=== PATIENT | female | born 1985 | race American Indian/Alaskan Native ===

== ENCOUNTER 2016-12-23 10:22 | Emergency (ER) | payer BC ==
[2016-12-23 11:09] LABS: Basophils % (Auto) 0.2 % (0.0-1.8); Eosinophils % (Auto) 0.3 % (0.0-4.3); Hematocrit 40.6 % (30.3-42.9); Hemoglobin 13.4 gm/dl (10.1-14.3); Mean Corpuscular HGB Conc 33 % (30-34); Mean Corpuscular Hemoglobin 27 pg (28-32); Mean Corpuscular Volume 83 fl (79-97); Platelet Count 269 K/mm3 (140-440); Red Blood Count 4.91 M/mm3 (3.65-5.03); White Blood Count 7.6 K/mm3 (4.5-11.0)
[2016-12-23 11:25] LABS: Alanine Aminotransferase 18 units/L (7-56); Albumin 4.2 g/dL (3.9-5); Albumin/Globulin Ratio 1.3 %; Alkaline Phosphatase 84 units/L (35-129); Anion Gap 18 mmol/L; BUN/Creatinine Ratio 11.66; Blood Urea Nitrogen 7 mg/dL (7-17); Calcium 8.7 mg/dL (8.4-10.2); Carbon Dioxide 23 mmol/L (22-30); Chloride 99.2 mmol/L (98-107); Glucose 151 mg/dL (65-100); Lipase 17 units/L (13-60); Potassium 3.7 mmol/L (3.6-5.0); Sodium 136 mmol/L (137-145); Total Protein 7.4 g/dL (6.3-8.2)
[2016-12-23 12:11] LABS: Bacteria,Urine 2+ /HPF (Negative); Bilirubin,Urine NEG (Negative); Blood,Urine MOD (Negative); Ketones,Urine TR mg/dL (Negative); Leukocyte Esterase,Urine LG (Negative); Mucus,Urine 2+ /HPF; Nitrite,Urine NEG (Negative); Urobilinogen,Urine < 2.0 mg/dL (<2.0)
[2016-12-23] MEDS ORDERED: ZOFRAN ONE ×2 (14:36→17:26)
[2016-12-23] MEDS ORDERED: ZOFRAN IV ONE ×2 (14:42→17:25)
[2016-12-23] MEDS ORDERED: NACL 0.9% 1000 ML 1,000 ML IV ONE (17:44)
[2016-12-23] MEDS ORDERED: TORADOL IV ONE (17:45)
[2016-12-23] MEDS ORDERED: MORPHINE IV ONE (18:23)
[2016-12-23] MEDS ORDERED: REGLAN IV ONE (18:24)
[2016-12-23] MEDS ORDERED: ROCEPHIN/NS 1 GM/50 ML 1 GM/50 ML BAG IV ONE (18:25)
--- NOTE | 2016-12-23 18:33 | Emergency Department Report ---
HPI - General Chief Complaint: Abdominal Pain Time Seen by Provider: 12/23/16 18:10 - HPI HPI: Room 38 The patient is a 31-year-old female presenting with a chief complaint of abdominal pain. The patient states this morning she developed diffuse abdominal pain that was aching and cramping in nature. The patient states the pain is constant. The patient states she developed nausea vomiting and diarrhea yesterday. Patient states she's had over 10 episodes of diarrhea has began to notice blood in her stool. Patient denies dysuria or hematuria. Patient denies back pain or fever. The patient currently gives her abdominal pain a score of 10/10 Location: Abdomen Duration: [see above] Quality: Aching and cramping Severity: 10/10 Modifying factors: [see above] Context: [see above] Mode of transportation: [not driving] ED Past Medical Hx - Past Medical History Previous Medical History?: No - Surgical History Hx Cholecystectomy: Yes - Family History Family history: no significant - Social History Smoking Status: Never Smoker Substance Use Type: None - Medications Home Medications: Home Medications Medication Instructions Recorded Confirmed Last Taken Type Ibuprofen [Motrin] 600 mg PO Q8H PRN 11/14/15 11/14/15 11/14/15 History Promethazine [Phenergan] 25 mg IN Q6HR PRN 11/14/15 11/14/15 11/14/15 History HYDROcodone/APAP 5-325 [[place] 1 - 2 each PO Q6HR PRN #14 tablet 11/15/15 Unknown Rx 5/325] Levofloxacin [Levaquin TAB] 500 mg PO QDAY #10 tablet 11/15/15 Unknown Rx Metoclopramide [Reglan] 10 mg PO TID PRN #20 tab 11/15/15 Unknown Rx Diphenoxylate/Atropine [Lomotil] 2 tab PO QID PRN #20 tablet 12/23/16 Unknown Rx Promethazine [Phenergan TAB] 25 mg PO Q6HR PRN #20 tab 12/23/16 Unknown Rx Promethazine [Phenergan] 25 mg IN Q6HR PRN #5 supp.rect 12/23/16 Unknown Rx Sulfamethoxazole/Trimethoprim 1 each PO BID #20 tablet 12/23/16 Unknown Rx [Bactrim DS TAB] traMADol [Ultram] 50 mg PO Q6HR PRN #14 tablet 12/23/16 Unknown Rx ED Review of Systems ROS: Stated complaint: ABD PAIN/VOMITING/DIARRHEA Other details as noted in HPI Comment: All other systems reviewed and negative Constitutional: denies: chills, fever Eyes: denies: eye pain, eye discharge, vision change ENT: denies: ear pain, throat pain Respiratory: denies: cough, shortness of breath, wheezing Cardiovascular: denies: chest pain, palpitations Endocrine: no symptoms reported Gastrointestinal: abdominal pain, nausea, vomiting, diarrhea Genitourinary: denies: urgency, dysuria, discharge Musculoskeletal: denies: back pain, joint swelling, arthralgia Skin: denies: rash, lesions Neurological: denies: headache, weakness, paresthesias Psychiatric: denies: anxiety, depression Hematological/Lymphatic: denies: easy bleeding, easy bruising Physical Exam - Physical Exam Vital Signs: Vital Signs 12/23/16 10:36 Temperature 97.9 F Pulse Rate 83 Blood Pressure 148/95 O2 Sat by Pulse 100 Oximetry Physical Exam: GENERAL: The patient is well-developed well-nourished female lying on stretcher sleeping not appearing to be in acute distress. Patient slow to respond when questioned. [] HEENT: Normocephalic. Atraumatic. Extraocular motions are intact. NECK: Trachea midline CHEST/LUNGS: Clear to auscultation. There is no respiratory distress noted. HEART/CARDIOVASCULAR: Regular. There is no tachycardia. There is no gallop rub or murmur. ABDOMEN: Abdomen is soft, nontender. Patient has normal bowel sounds. There is no abdominal distention. SKIN: There is no rash. There is no edema. There is no diaphoresis. NEURO: The patient is awake and oriented. The patient is cooperative. The patient has normal speech MUSCULOSKELETAL: There is no evidence of acute injury. ED Course Vital Signs 12/23/16 10:36 Temperature 97.9 F Pulse Rate 83 Blood Pressure 148/95 O2 Sat by Pulse 100 Oximetry ED Medical Decision Making - Lab Data Result diagrams: 12/23/16 10:56 12/23/16 10:56 Laboratory Tests 12/23/16 12/23/16 12/23/16 10:56 10:56 11:43 WBC 7.6 RBC 4.91 Hgb 13.4 Hct 40.6 MCV 83 MCH 27 L MCHC 33 RDW 14.0 Plt Count 269 Lymph % (Auto) 15.2 Jack % (Auto) 6.1 Eos % (Auto) 0.3 Baso % (Auto) 0.2 Lymph # 1.2 Jack # 0.5 Eos # 0.0 Baso # 0.0 Seg Neutrophils % 78.2 H Seg Neutrophils # 5.9 Sodium 136 L Potassium 3.7 Chloride 99.2 Carbon Dioxide 23 Anion Gap 18 BUN 7 Creatinine 0.6 L Estimated GFR > 60 BUN/Creatinine Ratio 11.66 Glucose 151 H Calcium 8.7 Total Bilirubin 0.30 AST 15 ALT 18 Alkaline Phosphatase 84 Total Protein 7.4 Albumin 4.2 Albumin/Globulin Ratio 1.3 Lipase 17 Urine Color Yellow Urine Turbidity Turbid Urine pH 5.0 Ur Specific [place] 1.018 Urine Protein 100 mg/dl Urine Glucose (UA) Neg Urine Ketones Tr Urine Blood Mod Urine Nitrite Neg Ur Reducing Substances Not Reportable Urine Bilirubin Neg Urine Ictotest Not Reportable Urine Urobilinogen < 2.0 Ur Leukocyte Esterase Lg Urine WBC (Auto) 57.0 H Urine RBC (Auto) 16.0 U Epithel Cells (Auto) 75.0 H Urine Bacteria (Auto) 2+ Urine Mucus 2+ Urine HCG, Qual Negative - Radiology Data Radiology results: report reviewed (CT abdomen and pelvis), image reviewed (CT abdomen and pelvis) CT abdomen and pelvis (read by radiologist)-no acute abnormalities are seen - Differential Diagnosis polynephritis, UTI, gastroenteritis Critical care attestation.: If time is entered above; I have spent that time in minutes in the direct care of this critically ill patient, excluding procedure time. ED Disposition Clinical Impression: UTI (urinary tract infection), Nausea vomiting and diarrhea, Acute abdominal pain Disposition: DISCHARGED TO HOME OR SELFCARE Is pt being admited?: No Does the pt Need Aspirin: No Condition: Stable Instructions: Abdominal Pain (ED), Acute Nausea and Vomiting (ED) Additional Instructions: Return to the emergency department immediately should you develop worsening symptoms, fever, inability to tolerate food or liquid or any other concerns. 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 Please follow with him for further evaluation) Time of Disposition: 20:26
--- NOTE | 2016-12-23 20:14 | Cat Scan Report ---
FINAL REPORT EXAM: CT ABDOMEN PELVIS W CON HISTORY: diffuse abdominal pain n/v/d TECHNIQUE: CT abdomen and pelvis with intravenous contrast PRIORS: None. FINDINGS: No acute abnormality identified in the lung bases. No focal abnormality identified within the liver parenchyma. Patient status post cholecystectomy. The spleen demonstrates normal size and attenuation. No pancreatic abnormalities seen. The kidneys demonstrate symmetric contrast enhancement. No evidence of hydronephrosis. The adrenal glands are unremarkable Abdominal aorta is normal in caliber. No pathologically enlarged lymph nodes are identified. No signs of free fluid or free air No evidence of small bowel dilatation. Colon is nondistended. No pericolonic inflammatory change. Urinary bladder is unremarkable. IMPRESSION: No acute abnormalities seen
[2016-12-23 20:59] VITALS: BP 159/89
== END 2016-12-23 21:06 | disposition home or self-care (01) ==
LOC: ED 10:22
DX: N39.0 Urinary tract infection, site not specified (principal); R11.2 Nausea with vomiting, unspecified; R19.7 Diarrhea, unspecified; R10.84 Generalized abdominal pain; Z90.49 Acquired absence of other specified parts of digestive tract
CPT/HCPCS: 36415; 74177; 80053; 81001; 81025; 83690; 85025; 87086; 96361; 96365; 96366; 96375; 96376; 99284; J0696; J1885; J2270; J2405; J2765; J7030; Q9967

== ENCOUNTER 2017-10-07 10:25 | Emergency (ER) | payer BC ==
[2017-10-07 11:05] LABS: Basophils # (Auto) 0.1 K/mm3 (0.0-0.1); Basophils % (Auto) 0.4 % (0.0-1.8); Hematocrit 41.3 % (30.3-42.9); Hemoglobin 13.5 gm/dl (10.1-14.3); Mean Corpuscular HGB Conc 33 % (30-34); Mean Corpuscular Hemoglobin 28 pg (28-32); Mean Corpuscular Volume 85 fl (79-97); Monocytes # (Auto) 0.6 K/mm3 (0.0-0.8); Platelet Count 390 K/mm3 (140-440); Red Blood Count 4.88 M/mm3 (3.65-5.03); Red Cell Distribution Width 13.7 % (13.2-15.2)
[2017-10-07 11:41] LABS: Amorphous Crystals,Urine 3+; Bilirubin,Urine NEG (Negative); Blood,Urine SM (Negative); Color,Urine Blue (Yellow); Mucus,Urine 3+ /HPF; Urobilinogen,Urine < 2.0 mg/dL (<2.0)
--- NOTE | 2017-10-07 12:03 | Emergency Department Report ---
ED Abdominal Pain HPI - General Chief Complaint: Abdominal Pain Stated Complaint: VOMITNG/DIARRHEA/ Time Seen by Provider: 10/07/17 12:01 Source: patient Mode of arrival: Ambulatory Limitations: No Limitations - History of Present Illness Initial Comments: Patient is aware that she is . She does not have an OB doctor. She she does not complain of abdominal pain. She states he's been vomiting. She complains of ongoing nausea. She was given Zofran prior to my encounter. She states she still somewhat nauseated. She has not received any IV fluid. She denies fever or chills or any other specific symptoms. MD Complaint: abdominal pain (according to triage she does not complain of that to me) Severity: moderate Consistency: now resolved Improves With: nothing Worsens With: nothing Associated Symptoms: denies other symptoms, nausea, vomiting - Related Data Home Medications Medication Instructions Recorded Confirmed Last Taken Ibuprofen [Motrin] 600 mg PO Q8H PRN 11/14/15 11/14/15 11/14/15 Promethazine [Phenergan] 25 mg [place] Q6HR PRN 11/14/15 11/14/15 11/14/15 Previous Rx's Medication Instructions Recorded Last Taken Type HYDROcodone/APAP 5-325 [[place] 1 - 2 each PO Q6HR PRN #14 tablet 11/15/15 Unknown Rx 5/325] Levofloxacin [Levaquin TAB] 500 mg PO QDAY #10 tablet 11/15/15 Unknown Rx Metoclopramide [Reglan] 10 mg PO TID PRN #20 tab 11/15/15 Unknown Rx Diphenoxylate/Atropine [Lomotil] 2 tab PO QID PRN #20 tablet 12/23/16 Unknown Rx Promethazine [Phenergan TAB] 25 mg PO Q6HR PRN #20 tab 12/23/16 Unknown Rx Promethazine [Phenergan] 25 mg [place] Q6HR PRN #5 supp.rect 12/23/16 Unknown Rx Sulfamethoxazole/Trimethoprim 1 each PO BID #20 tablet 12/23/16 Unknown Rx [Bactrim DS TAB] traMADol [Ultram] 50 mg PO Q6HR PRN #14 tablet 12/23/16 Unknown Rx Nitrofurantoin Monohyd/M-Cryst 100 mg PO BID #7 capsule 10/07/17 Unknown Rx [Macrobid 100 mg Capsule] Ondansetron [Zofran Odt] 4 mg PO Q6H #7 tab.rapdis 10/07/17 Unknown Rx Allergies Allergy/AdvReac Type Severity Reaction Status Date / Time No Known Allergies Allergy Unverified 11/14/15 18:28 ED Review of Systems ROS: Stated complaint: VOMITNG/DIARRHEA/ Other details as noted in HPI Constitutional: denies: chills, fever Eyes: denies: eye pain, eye discharge, vision change ENT: denies: ear pain, throat pain Respiratory: denies: cough, shortness of breath, wheezing Cardiovascular: denies: chest pain, palpitations Endocrine: no symptoms reported Gastrointestinal: as per HPI, abdominal pain, nausea, vomiting. denies: diarrhea Genitourinary: denies: urgency, dysuria, discharge Musculoskeletal: denies: back pain, joint swelling, arthralgia Skin: denies: rash, lesions Neurological: denies: headache, weakness, paresthesias Psychiatric: denies: anxiety, depression Hematological/Lymphatic: denies: easy bleeding, easy bruising ED Past Medical Hx - Surgical History Hx Cholecystectomy: Yes Additional Surgical History: - Social History Smoking Status: Never Smoker Substance Use Type: None - Medications Home Medications: Home Medications Medication Instructions Recorded Confirmed Last Taken Type Ibuprofen [Motrin] 600 mg PO Q8H PRN 11/14/15 11/14/15 11/14/15 History Promethazine [Phenergan] 25 mg [place] Q6HR PRN 11/14/15 11/14/15 11/14/15 History HYDROcodone/APAP 5-325 [[place] 1 - 2 each PO Q6HR PRN #14 tablet 11/15/15 Unknown Rx 5/325] Levofloxacin [Levaquin TAB] 500 mg PO QDAY #10 tablet 11/15/15 Unknown Rx Metoclopramide [Reglan] 10 mg PO TID PRN #20 tab 11/15/15 Unknown Rx Diphenoxylate/Atropine [Lomotil] 2 tab PO QID PRN #20 tablet 12/23/16 Unknown Rx Promethazine [Phenergan TAB] 25 mg PO Q6HR PRN #20 tab 12/23/16 Unknown Rx Promethazine [Phenergan] 25 mg [place] Q6HR PRN #5 supp.rect 12/23/16 Unknown Rx Sulfamethoxazole/Trimethoprim 1 each PO BID #20 tablet 12/23/16 Unknown Rx [Bactrim DS TAB] traMADol [Ultram] 50 mg PO Q6HR PRN #14 tablet 12/23/16 Unknown Rx Nitrofurantoin Monohyd/M-Cryst 100 mg PO BID #7 capsule 10/07/17 Unknown Rx [Macrobid 100 mg Capsule] Ondansetron [Zofran Odt] 4 mg PO Q6H #7 tab.rapdis 10/07/17 Unknown Rx ED Physical Exam - General Limitations: No Limitations General appearance: alert, in no apparent distress - Head Head exam: Present: atraumatic, normocephalic - Eye Eye exam: Present: normal appearance - ENT ENT exam: Present: mucous membranes moist - Neck Neck exam: Present: normal inspection - Respiratory Respiratory exam: Present: normal lung sounds bilaterally. Absent: respiratory distress - Cardiovascular Cardiovascular Exam: Present: regular rate, normal rhythm. Absent: systolic murmur, diastolic murmur, rubs, gallop - GI/Abdominal GI/Abdominal exam: Present: soft, normal bowel sounds. Absent: distended, tenderness, guarding, rebound, rigid - Extremities Exam Extremities exam: Present: normal inspection - Back Exam Back exam: Present: normal inspection - Neurological Exam Neurological exam: Present: alert, oriented X3, CN II-XII intact. Absent: motor sensory deficit - Psychiatric Psychiatric exam: Present: normal affect, normal mood - Skin Skin exam: Present: warm, dry, intact, normal color. Absent: rash ED Course Vital Signs 10/07/17 10/07/17 10/07/17 10:41 11:57 14:36 Temperature 97.7 F Pulse Rate 64 98 H Respiratory 18 18 18 Rate Blood Pressure 130/56 Blood Pressure 144/105 [Left] O2 Sat by Pulse 100 100 100 Oximetry - Reevaluation(s) Reevaluation #1: We'll recheck the patient's blood pressure prior to discharge. She is appropriate for outpatient follow-up with OB. Urine culture will be ordered. 10/07/17 15:31 ED Medical Decision Making - Lab Data Result diagrams: 10/07/17 10:57 10/07/17 10:57 Laboratory Results - last 24 hr 10/07/17 10/07/17 10/07/17 10:57 10:57 11:18 WBC 14.6 H RBC 4.88 Hgb 13.5 Hct 41.3 MCV 85 MCH 28 MCHC 33 RDW 13.7 Plt Count 390 Lymph % (Auto) 14.0 [place] % (Auto) 4.0 Eos % (Auto) 0.0 Baso % (Auto) 0.4 Lymph # 2.0 [place] # 0.6 Eos # 0.0 Baso # 0.1 Seg Neutrophils % 81.6 H Seg Neutrophils # 11.9 H HCG, Quant 1393 H Urine Color Blue Urine Turbidity Turbid Urine pH 5.0 Ur Specific [place] 1.024 Urine Protein 100 mg/dl Urine Glucose (UA) Neg Urine Ketones Tr Urine Blood Sm Urine Nitrite Neg Urine Bilirubin Neg Urine Urobilinogen < 2.0 Ur Leukocyte Esterase Tr Urine WBC (Auto) 10.0 H Urine RBC (Auto) 3.0 U Epithel Cells (Auto) 18.0 H Amorphous Crystals 3+ Urine Mucus 3+ Laboratory Results - last 24 hr 10/07/17 10/07/17 10/07/17 10:57 10:57 10:57 WBC 14.6 H RBC 4.88 Hgb 13.5 Hct 41.3 MCV 85 MCH 28 MCHC 33 RDW 13.7 Plt Count 390 Lymph % (Auto) 14.0 [place] % (Auto) 4.0 Eos % (Auto) 0.0 Baso % (Auto) 0.4 Lymph # 2.0 [place] # 0.6 Eos # 0.0 Baso # 0.1 Seg Neutrophils % 81.6 H Seg Neutrophils # 11.9 H Sodium 135 L Potassium 3.6 Chloride 99.0 Carbon Dioxide 20 L Anion Gap 20 BUN 7 Creatinine 0.6 L Estimated GFR > 60 BUN/Creatinine Ratio 12 Glucose 189 H Calcium 8.7 Total Bilirubin 0.30 AST 21 ALT 34 Alkaline Phosphatase 100 Total Protein 7.5 Albumin 4.1 Albumin/Globulin Ratio 1.2 Lipase 14 HCG, Quant 1393 H Urine Color Urine Turbidity Urine pH Ur Specific [place] Urine Protein Urine Glucose (UA) Urine Ketones Urine Blood Urine Nitrite Urine Bilirubin Urine Urobilinogen Ur Leukocyte Esterase Urine WBC (Auto) Urine RBC (Auto) U Epithel Cells (Auto) Amorphous Crystals Urine Mucus 10/07/17 11:18 WBC RBC Hgb Hct MCV MCH MCHC RDW Plt Count Lymph % (Auto) [place] % (Auto) Eos % (Auto) Baso % (Auto) Lymph # [place] # Eos # Baso # Seg Neutrophils % Seg Neutrophils # Sodium Potassium Chloride Carbon Dioxide Anion Gap BUN Creatinine Estimated GFR BUN/Creatinine Ratio Glucose Calcium Total Bilirubin AST ALT Alkaline Phosphatase Total Protein Albumin Albumin/Globulin Ratio Lipase HCG, Quant Urine Color Blue Urine Turbidity Turbid Urine pH 5.0 Ur Specific [place] 1.024 Urine Protein 100 mg/dl Urine Glucose (UA) Neg Urine Ketones Tr Urine Blood Sm Urine Nitrite Neg Urine Bilirubin Neg Urine Urobilinogen < 2.0 Ur Leukocyte Esterase Tr Urine WBC (Auto) 10.0 H Urine RBC (Auto) 3.0 U Epithel Cells (Auto) 18.0 H Amorphous Crystals 3+ Urine Mucus 3+ Critical care attestation.: If time is entered above; I have spent that time in minutes in the direct care of this critically ill patient, excluding procedure time. ED Disposition Clinical Impression: Hyperemesis gravidarum, Hyperglycemia, UTI (urinary tract infection) Disposition: TO HOME OR SELFCARE Is pt being admited?: No Does the pt Need Aspirin: No Condition: Stable Instructions: Hyperemesis Gravidarum (ED), Hyperglycemia, Non-Diabetic (ED), Urinary Tract Infection in Women (ED) Additional Instructions: Sugar was a bit elevated this will require monitoring. Your urine showed a few white blood cells so we will place her on an antibiotic for the next 3 days. Follow-up on a urine culture test. Follow up with the OB doctor. Return to the emergency department any acute change or problem. Prescriptions: Nitrofurantoin Monohyd/M-Cryst [Macrobid 100 mg Capsule] 100 mg PO BID #7 capsule Ondansetron [Zofran Odt] 4 mg PO Q6H #7 tab.rapdis Referrals: PRIMARY MD KOJO [Primary Care Provider] - 3-5 Days CARLOS KNIGHT MD [Staff Physician] - 2-3 Days Time of Disposition: 15:31
[2017-10-07 12:24] LABS: Alanine Aminotransferase 34 units/L (7-56); Albumin 4.1 g/dL (3.9-5); BUN/Creatinine Ratio 12; Blood Urea Nitrogen 7 mg/dL (7-17); Calcium 8.7 mg/dL (8.4-10.2); Hemolysis Index 3; Lipase 14 units/L (13-60)
[2017-10-07] MEDS ORDERED: ZOFRAN ONE (12:35)
[2017-10-07] MEDS ORDERED: ZOFRAN IV ONE ×2 (12:46→14:09)
[2017-10-07] MEDS ORDERED: ZOFRAN ODT ONE (12:55)
[2017-10-07] MEDS ORDERED: ZOFRAN PO ONE ×2 (13:00→14:00)
[2017-10-07] MEDS ORDERED: NACL 0.9% 1000 ML 1,000 ML IV ONE (14:09)
--- NOTE | 2017-10-07 15:00 | Ultrasound Report ---
FINAL REPORT EXAM: US OB TRANSVAGINAL HISTORY: abdominal pain first trimester TECHNIQUE: Early obstetrical ultrasound. Transvaginal scanning. This is read in conjunction with a transabdominal scan performed concurrently. PRIORS: None. FINDINGS: The uterus measures 7.4 x 2.9 x 2.9 cm. There is a very tiny gestational sac in the uterus measuring 3.8 mm. A tiny yolk sac is questionably identified. No pole seen, probably too early. Sac size roughly corresponds to gestational age of 5 weeks. No abnormal adnexal mass seen. Right ovary measures 2.3 x 1.2 x 2.4 cm. Left measures 2.2 x 2.3 x 2.6 cm. 2.5 x 1.0 x 2.1 cm left ovarian mass could be a complex cystic mass versus solid mass. IMPRESSION: Intrauterine very small gestational sac seen. A yolk sac questionably seen but pole not identified, probably too early. Sac size roughly corresponds to age of 5 weeks. Followup suggested to confirm viability and better assess gestational age. Complex cystic mass versus small solid lesion/mass in left ovary. This could be a complicated corpus luteal cyst. This can be reassessed on subsequent exams.
--- NOTE | 2017-10-07 15:04 | Ultrasound Report ---
FINAL REPORT EXAM: US OB < = 14 WEEKS FETUS HISTORY: abdominal pain first trimester TECHNIQUE: Early obstetrical ultrasound. Transabdominal images. This is read in conjunction with transvaginal study performed concurrently. PRIORS: None. FINDINGS: Transabdominal images are limited due to body habitus and bowel gas. Pelvic structures are best visualized on the transvaginal exam which demonstrates: Uterus measures 7.4 x 2.9 x 2.9 cm. There is a very tiny gestational sac in the uterus measuring 3.8 mm. A tiny yolk sac is questionably identified. No pole seen, probably too early. Sac size roughly corresponds to gestational age of 5 weeks. No abnormal adnexal mass seen. Right ovary measures 2.3 x 1.2 x 2.4 cm. Left measures 2.2 x 2.3 x 2.6 cm. 2.5 x 1.0 x 2.1 cm left ovarian mass could be a complex cystic mass versus solid mass. IMPRESSION: Very small intrauterine gestational sac without visualization of the pole, likely too early. The sac size roughly corresponds to age of 5 weeks. Followup suggested to confirm viability and more reliably assess gestational age. Complex solid versus cystic mass in the left ovary. This may be a complicated corpus luteal cyst. Suggest reassessment on subsequent studies.
[2017-10-07 15:52] VITALS: BP 146/81
== END 2017-10-07 15:51 | disposition home or self-care (01) ==
LOC: ED 10:25
DX: O21.0 Mild hyperemesis gravidarum (principal); O23.41 Unspecified infection of urinary tract in pregnancy, first trimester; R73.9 Hyperglycemia, unspecified; Z90.49 Acquired absence of other specified parts of digestive tract; Z3A.01 Less than 8 weeks gestation of pregnancy
CPT/HCPCS: 36415; 76801; 76817; 80053; 81001; 83690; 84702; 85025; 87086; 93005; 93010; 96361; 96374; 96376; 99284; J2405; J7030; Q0162

== ENCOUNTER 2017-11-19 12:58 | Observation (INO) | payer BC ==
[2017-11-19 13:44] LABS: Basophils # (Auto) 0.1 K/mm3 (0.0-0.1); Basophils % (Auto) 0.4 % (0.0-1.8); Hemoglobin 12.8 gm/dl (10.1-14.3); Lymphocytes # (Auto) 1.7 K/mm3 (1.2-5.4); Lymphocytes % (Auto) 9.6 % (13.4-35.0); Mean Corpuscular HGB Conc 34 % (30-34); Mean Corpuscular Hemoglobin 28 pg (28-32); Mean Corpuscular Volume 83 fl (79-97); Monocytes # (Auto) 0.7 K/mm3 (0.0-0.8); Monocytes % (Auto) 3.8 % (0.0-7.3); Platelet Count 348 K/mm3 (140-440); Red Blood Count 4.56 M/mm3 (3.65-5.03)
[2017-11-19 14:28] LABS: Bacteria,Urine 4+ /HPF (Negative); Bilirubin,Urine NEG (Negative); Blood,Urine LG (Negative); Color,Urine Red (Yellow); Hyaline Casts,Urine 4 /LPF; Mucus,Urine FEW /HPF; Urobilinogen,Urine < 2.0 mg/dL (<2.0)
[2017-11-19] MEDS ORDERED: ZOFRAN IV ONE (17:39)
[2017-11-19] MEDS ORDERED: NACL 0.9% 1000 ML 1,000 ML IV ONE (17:39)
--- NOTE | 2017-11-19 18:33 | Emergency Department Report ---
ED General Adult HPI - General Chief complaint: Vaginal Bleeding Stated complaint: CRAMPING/PAINFUL URINATION Time Seen by Provider: 11/19/17 16:53 Source: patient Mode of arrival: Ambulatory Limitations: No Limitations - History of Present Illness Initial comments: 32-year-old female with no significant past medical history complaining of vaginal bleeding. She said that she had a recent done on October 30 and she had a follow-up up with her [employer] which was normal and she had some spotting at that time and now patient said she had some bleeding and decided to come get checked out. At the time of arrival pt is under no acute distress. She denies any nausea vomiting chest pain shortness of breath. She denies any fever chills. Patient in no acute distress -: Gradual Location: pelvis Radiation: non-radiation Severity scale (0 -10): 2 Quality: aching Improves with: none Worsens with: none Associated Symptoms: denies other symptoms - Related Data Home Medications Medication Instructions Recorded Confirmed Last Taken Ibuprofen [Motrin] 600 mg PO Q8H PRN 11/14/15 11/14/15 11/14/15 Promethazine [Phenergan] 25 mg AL Q6HR PRN 11/14/15 11/14/15 11/14/15 Previous Rx's Medication Instructions Recorded Last Taken Type HYDROcodone/APAP 5-325 [[place] 1 - 2 each PO Q6HR PRN #14 tablet 11/15/15 Unknown Rx 5/325] Levofloxacin [Levaquin TAB] 500 mg PO QDAY #10 tablet 11/15/15 Unknown Rx Metoclopramide [Reglan] 10 mg PO TID PRN #20 tab 11/15/15 Unknown Rx Diphenoxylate/Atropine [Lomotil] 2 tab PO QID PRN #20 tablet 12/23/16 Unknown Rx Promethazine [Phenergan TAB] 25 mg PO Q6HR PRN #20 tab 12/23/16 Unknown Rx Promethazine [Phenergan] 25 mg AL Q6HR PRN #5 supp.rect 12/23/16 Unknown Rx Sulfamethoxazole/Trimethoprim 1 each PO BID #20 tablet 12/23/16 Unknown Rx [Bactrim DS TAB] traMADol [Ultram] 50 mg PO Q6HR PRN #14 tablet 12/23/16 Unknown Rx Nitrofurantoin [place]/M-Cryst 100 mg PO BID #7 capsule 10/07/17 Unknown Rx [Macrobid 100 mg Capsule] Ondansetron [Zofran Odt] 4 mg PO Q6H #7 tab.rapdis 10/07/17 Unknown Rx Allergies Allergy/AdvReac Type Severity Reaction Status Date / Time No Known Allergies Allergy Unverified 11/14/15 18:28 ED Review of Systems ROS: Stated complaint: CRAMPING/PAINFUL URINATION Other details as noted in HPI Constitutional: no symptoms reported Eyes: denies: eye pain, eye discharge, vision change ENT: denies: ear pain, throat pain Respiratory: denies: cough, shortness of breath, wheezing Cardiovascular: denies: chest pain, palpitations Endocrine: no symptoms reported Gastrointestinal: denies: abdominal pain, nausea, diarrhea Genitourinary: other (vaginal bleeding) Musculoskeletal: as per HPI Skin: as per HPI Neurological: as per HPI Psychiatric: as per HPI ED Past Medical Hx - Past Medical History Previous Medical History?: Yes Additional medical history: vaginal bleeding after medical - Surgical History Past Surgical History?: Yes Hx Cholecystectomy: Yes Additional Surgical History: , medical 10-30-2017 - Social History Smoking Status: Never Smoker Substance Use Type: Alcohol - Medications Home Medications: Home Medications Medication Instructions Recorded Confirmed Last Taken Type Ibuprofen [Motrin] 600 mg PO Q8H PRN 11/14/15 11/14/15 11/14/15 History Promethazine [Phenergan] 25 mg AL Q6HR PRN 11/14/15 11/14/15 11/14/15 History HYDROcodone/APAP 5-325 [[place] 1 - 2 each PO Q6HR PRN #14 tablet 11/15/15 Unknown Rx 5/325] Levofloxacin [Levaquin TAB] 500 mg PO QDAY #10 tablet 11/15/15 Unknown Rx Metoclopramide [Reglan] 10 mg PO TID PRN #20 tab 11/15/15 Unknown Rx Diphenoxylate/Atropine [Lomotil] 2 tab PO QID PRN #20 tablet 12/23/16 Unknown Rx Promethazine [Phenergan TAB] 25 mg PO Q6HR PRN #20 tab 12/23/16 Unknown Rx Promethazine [Phenergan] 25 mg AL Q6HR PRN #5 supp.rect 12/23/16 Unknown Rx Sulfamethoxazole/Trimethoprim 1 each PO BID #20 tablet 12/23/16 Unknown Rx [Bactrim DS TAB] traMADol [Ultram] 50 mg PO Q6HR PRN #14 tablet 12/23/16 Unknown Rx Nitrofurantoin Monohyd/M-Cryst 100 mg PO BID #7 capsule 10/07/17 Unknown Rx [Macrobid 100 mg Capsule] Ondansetron [Zofran Odt] 4 mg PO Q6H #7 tab.rapdis 10/07/17 Unknown Rx ED Physical Exam - General Limitations: No Limitations - Head Head exam: Present: atraumatic - Eye Eye exam: Present: normal appearance - ENT ENT exam: Present: normal exam - Neck Neck exam: Present: normal inspection - Respiratory Respiratory exam: Present: normal lung sounds bilaterally - Cardiovascular Cardiovascular Exam: Present: regular rate - GI/Abdominal GI/Abdominal exam: Present: soft - External exam: Present: other (Gu exam done with female nurse in room: + slight vaginal bleeding, some products of conception noted, no active bleeding noted) ED Course Vital Signs 11/19/17 11/19/17 11/19/17 13:04 19:26 19:30 Temperature 98.7 F Pulse Rate 98 H 87 59 L Respiratory 20 18 21 Rate Blood Pressure 134/93 127/65 O2 Sat by Pulse 100 100 Oximetry 11/19/17 19:46 Temperature Pulse Rate Respiratory 20 Rate Blood Pressure O2 Sat by Pulse 100 Oximetry ED Medical Decision Making - Lab Data Result diagrams: 11/19/17 13:31 Critical care attestation.: If time is entered above; I have spent that time in minutes in the direct care of this critically ill patient, excluding procedure time. ED Disposition Clinical Impression: Retained products of conception, Vaginal bleeding Disposition: OP ADMIT IP TO THIS HOSP Is pt being admited?: Yes Condition: Stable Referrals: PRIMARY CARE,MD [Primary Care Provider] - 3-5 Days
--- NOTE | 2017-11-19 19:48 | Ultrasound Report ---
FINAL REPORT EXAM: US PELVIC COMPLETE HISTORY: vag bleed . 3 weeks ago with dysfunctional uterine bleeding. TECHNIQUE: Ultrasound of the pelvis using transabdominal and transvaginal imaging PRIORS: None. FINDINGS: Uterus: Uterus is normal in size and normal and homogeneous in echogenicity without focal fibroid formation. The uterus measures 8.9 x 4.8 x 6.1 cm in size. Endometrial stripe: Abnormal in thickness and inhomogeneous and complex in echogenicity. The endometrium measures 20.0 mm in thickness. No internal blood flow is seen within the endometrium. Ovaries: Right ovary is enlarged. Both ovaries appear normal in echogenicity with normal blood flow bilaterally. The right ovary measures 4.1 x 4.1 x 3.6 cm and the left ovary measures 2.6 x 1.7 x 1.7 cm in size. Multiple small cysts are seen in the right ovary, likely physiologic, measuring up to 1.9 cm. Other: There is no evidence for solid adnexal mass or free fluid in the cul-de-sac seen. IMPRESSION: Abnormally thickened, avascular, and inhomogeneous endometrium. Given the the history, the possibility of retained products of conception should be considered. Alternatively, this could represent hemorrhagic debris.
[2017-11-19] MEDS ORDERED: CLEOCIN 900 MG/50 mL 900 MG/50 ML BAG IV ONE (20:53)
[2017-11-19] MEDS ORDERED: ZOSYN/NS 3.375GM/50ML 3.375 GM/50 ML BAG IV SCH (21:00)
[2017-11-19 21:16] LABS: BUN/Creatinine Ratio 12; Blood Urea Nitrogen 7 mg/dL (7-17); Calcium 9.2 mg/dL (8.4-10.2); Hemolysis Index 9
[2017-11-19] MEDS ORDERED: GARAMYCIN/NS 80 MG/100 ML 100 ML IV ONE (21:30)
[2017-11-19] MEDS ORDERED: POLYCILLIN 500 MG in NACL 0.9% 50 ML IV ONE (21:45)
[2017-11-19] MEDS ORDERED: SODIUM CHLORIDE FLUSH SYRINGE 10 ML IV PRN (23:19)
[2017-11-19] MEDS ORDERED: ZOFRAN IV PRN (23:19)
[2017-11-19] MEDS ORDERED: MOTRIN PO PRN (23:19)
[2017-11-19] MEDS ORDERED: TYLENOL PO PRN (23:19)
--- NOTE | 2017-11-19 23:33 | History and Physical Report ---
History of Present Illness Date of examination: 11/19/17 (by Dr Domingo Hogan) Date of admission: 11/19/17 21:03 Chief complaint: nausea and vaginal bleeding History of present illness: Provider called by Dr. Tyrell Hogan stating she was call by Er regarding this pt what is s/p elective termination of on 10/30/17 and had f/u with facility after the procedure but presented c/o nausea and vaginal bleeding. Sono was read as possible pocs and quant of 31. Pt current is w/o a fever and has not had a temp but does have wbc of 17. Pt was admitted by this provider and it was later discovered that she was a pt of [facility] and this is when I was called. Pt does not likely have an SAB and as per the report given by Dr. Hogan , does not have a surgical abdomen or pelvic pain. She does appear to have a uti so a urine cx will be added at this time. She was treated with amp/gen/ clinda times one dose. Given qunat and timing of , she likely does not have pocs but just changes related to having had medial .Past Medical History: Reviewed history from 06/12/2014 and no changes required: DM - no medication or current monitoring + HRHPV 2015 Past Surgical History: Reviewed history from 07/08/2016 and no changes required: Cholecystectomy Tonsillectomy Past Medical History Abnormal PAP: positive, +HRHPV 2015 Social Hx: Patient is single FOC not involved Smoking History: Patient has never smoked. Infection History Hx of STD: none HIV Risk Eval: low risk Hepatitis B Risk Eval: low risk Partner hx. of genital herpes: no Rash, Viral, or Febrile illness since last LMP? no Genetic History Congenital Heart Defect: Mom: no Dad: no Bárbara Disease: Mom: no Dad: no Thalassemia Mom: no Dad: no Neural Tube Defect Mom: no Dad: no Down's Syndrome Mom: no Dad: no Umang-Sachs Mom: no Dad: no Sickle Cell Disease/Trait Mom: no Dad: no Hemophilia Mom: no Dad: no Muscular Dystrophy Mom: no Dad: no Cystic Fibrosis Mom: no Dad: no Ángel Chorea Mom: no Dad: no Mental Retardation Mom: no Dad: no Fragile X Mom: no Dad: no Other Genetic/Chromosomal Disorder Mom: no Dad: no Child w/other defect Mom: no Dad: no Enviromental Exposures Xray Exposure: no Medication, drug, or alcohol use since LMP: no Chemical/Other Exposure: no Exposure to Cat Liter: no Hx of Parvovirus (Fifth Disease): no Occupational Exposure to Children: none Active Medications: None Current Allergies: No known allergies Past History Past Medical History: diabetes Past Surgical History: other (see hpi) 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) Medications and Allergies Allergies Allergy/AdvReac Type Severity Reaction Status Date / Time No Known Allergies Allergy Unverified 11/14/15 18:28 Home Medications Medication Instructions Recorded Confirmed Last Taken Type Ibuprofen [Motrin] 600 mg PO Q8H PRN 11/14/15 11/14/15 11/14/15 History Promethazine [Phenergan] 25 mg NV Q6HR PRN 11/14/15 11/14/15 11/14/15 History HYDROcodone/APAP 5-325 [[place] 1 - 2 each PO Q6HR PRN #14 tablet 11/15/15 Unknown Rx 5/325] Levofloxacin [Levaquin TAB] 500 mg PO QDAY #10 tablet 11/15/15 Unknown Rx Metoclopramide [Reglan] 10 mg PO TID PRN #20 tab 11/15/15 Unknown Rx Diphenoxylate/Atropine [Lomotil] 2 tab PO QID PRN #20 tablet 12/23/16 Unknown Rx Promethazine [Phenergan TAB] 25 mg PO Q6HR PRN #20 tab 12/23/16 Unknown Rx Promethazine [Phenergan] 25 mg NV Q6HR PRN #5 supp.rect 12/23/16 Unknown Rx Sulfamethoxazole/Trimethoprim 1 each PO BID #20 tablet 12/23/16 Unknown Rx [Bactrim DS TAB] traMADol [Ultram] 50 mg PO Q6HR PRN #14 tablet 12/23/16 Unknown Rx Nitrofurantoin Monohyd/M-Cryst 100 mg PO BID #7 capsule 10/07/17 Unknown Rx [Macrobid 100 mg Capsule] Ondansetron [Zofran Odt] 4 mg PO Q6H #7 tab.rapdis 10/07/17 Unknown Rx Review of Systems All systems: negative - Vital Signs Vital signs: Vital Signs Temp Pulse Resp BP Pulse Ox 98.7 F 98 H 20 134/93 100 11/19/17 13:04 11/19/17 13:04 11/19/17 13:04 11/19/17 13:04 11/19/17 13:04 Temp Pulse Resp BP Pulse Ox 98 F 83 21 161/125 100 11/19/17 23:06 11/19/17 22:01 11/19/17 22:01 11/19/17 22:01 11/19/17 22:01 Results Result Diagrams: 11/19/17 13:31 11/19/17 21:00 Abnormal lab results 11/19/17 11/19/17 11/19/17 Range/Units 13:31 13:31 14:10 WBC 17.9 H (4.5-11.0) K/mm3 Lymph % (Auto) 9.6 L (13.4-35.0) % Seg Neutrophils % 86.2 H (40.0-70.0) % Seg Neutrophils # 15.5 H (1.8-7.7) K/mm3 Sodium (137-145) mmol/L Chloride (98-107) mmol/L Creatinine (0.7-1.2) mg/dL Glucose (65-100) mg/dL HCG, Quant 31.79 H (0-4) mIU/mL Urine WBC (Auto) 48.0 H (0.0-6.0) /HPF U Epithel Cells (Auto) 41.0 H (0-13.0) /HPF 11/19/17 Range/Units 21:00 WBC (4.5-11.0) K/mm3 Lymph % (Auto) (13.4-35.0) % Seg Neutrophils % (40.0-70.0) % Seg Neutrophils # (1.8-7.7) K/mm3 Sodium 132 L (137-145) mmol/L Chloride 92.8 L (98-107) mmol/L Creatinine 0.6 L (0.7-1.2) mg/dL Glucose 122 H (65-100) mg/dL HCG, Quant (0-4) mIU/mL Urine WBC (Auto) (0.0-6.0) /HPF U Epithel Cells (Auto) (0-13.0) /HPF All other labs normal. Assessment and Plan - Patient Problems (1) UTI (urinary tract infection) Current Visit: Yes Status: Acute Qualifiers: Urinary tract infection type: acute cystitis Plan to address problem: -urine -rocephine iv starting in the am (2) Nausea & vomiting Current Visit: Yes Status: Acute Plan to address problem: -antinausea meds -adat (3) Vaginal bleeding Current Visit: Yes Status: Acute Plan to address problem: -as per Dr. Hogan bleeding is minimal -h/h stable. closely monitor for now (4) Diabetes Current Visit: Yes Status: Acute Qualifiers: Diabetes mellitus type: type 2 Diabetes mellitus complication status: without complication Plan to address problem: -currently on no meds
[2017-11-20 03:07] LABS: Bacteria,Urine 1+ /HPF (Negative); Bilirubin,Urine NEG (Negative); Blood,Urine LG (Negative); Color,Urine Yellow (Yellow); Mucus,Urine 1+ /HPF; Urobilinogen,Urine < 2.0 mg/dL (<2.0)
--- NOTE | 2017-11-20 07:01 | Progress Note ---
Assessment and Plan Discussed lab results and possible POC with pt. All questions addressed. Bleeding minimal this AM. Pt w/o c/o N&V. Does c/o perfuse sweating. P: OOB to shower and AM care. Will consult with Dr.Youngblood Balbuena d/c this AM Subjective - Subjective Date of service: 11/20/17 (pt sleeping soundly) Principal diagnosis: N&V,UTI, s/p EAB vaginal spotting Patient reports: voiding normally, ambulating normally Objective - Vital Signs Latest vital signs: Vital Signs Temp Pulse Resp BP BP Pulse Ox 11/20/17 04:00 98.7 F 77 16 132/68 11/20/17 00:15 98.7 F 69 16 122/74 11/19/17 23:06 98 F 11/19/17 22:45 98.9 F 68 20 132/76 99 11/19/17 22:01 83 21 161/125 100 11/19/17 21:45 62 15 146/84 98 11/19/17 21:31 102 H 17 165/95 100 11/19/17 21:15 87 10 L 165/95 100 11/19/17 21:01 70 20 148/97 99 11/19/17 20:45 60 20 110/58 100 11/19/17 20:31 73 22 102/53 99 11/19/17 20:15 56 L 17 124/72 99 11/19/17 20:00 76 24 134/74 100 11/19/17 19:46 20 100 11/19/17 19:45 66 21 124/72 100 11/19/17 19:30 59 L 21 127/65 100 11/19/17 19:26 87 18 11/19/17 13:04 98.7 F 98 H 20 134/93 100 Intake and Output 11/19/17 11/19/17 11/20/17 14:59 22:59 06:59 Intake Total 20 Balance 20 Intake: IV 20 Left Antecubital 20 Other: # Voids Void 1 Weight 229 lb Patient Weight 11/20/17 06:59 Weight 229 lb - Exam Breasts: Present: deferred Cardiovascular: Present: Regular rate Lungs: Present: Normal air movement Abdomen: Present: normal appearance, soft Vulva: both: normal Uterus: Present: normal (nontender) Extremities: Present: normal Deep Tendon Reflex Grade: Normal +2 - Labs Labs: Abnormal lab results 11/19/17 11/19/17 11/19/17 Range/Units 13:31 13:31 14:10 WBC 17.9 H (4.5-11.0) K/mm3 Lymph % (Auto) 9.6 L (13.4-35.0) % Seg Neutrophils % 86.2 H (40.0-70.0) % Seg Neutrophils # 15.5 H (1.8-7.7) K/mm3 Sodium (137-145) mmol/L Chloride (98-107) mmol/L Creatinine (0.7-1.2) mg/dL Glucose (65-100) mg/dL HCG, Quant 31.79 H (0-4) mIU/mL Ur Specific Theodore (1.003-1.030) Urine WBC (Auto) 48.0 H (0.0-6.0) /HPF U Epithel Cells (Auto) 41.0 H (0-13.0) /HPF 11/19/17 11/20/17 Range/Units 21:00 Unknown WBC (4.5-11.0) K/mm3 Lymph % (Auto) (13.4-35.0) % Seg Neutrophils % (40.0-70.0) % Seg Neutrophils # (1.8-7.7) K/mm3 Sodium 132 L (137-145) mmol/L Chloride 92.8 L (98-107) mmol/L Creatinine 0.6 L (0.7-1.2) mg/dL Glucose 122 H (65-100) mg/dL HCG, Quant (0-4) mIU/mL Ur Specific Theodore 1.036 H (1.003-1.030) Urine WBC (Auto) 88.0 H (0.0-6.0) /HPF U Epithel Cells (Auto) 21.0 H (0-13.0) /HPF
--- NOTE | 2017-11-20 08:24 | Discharge Summary ---
Providers - Providers Date of Admission: 11/19/17 21:03 Date of discharge: 11/20/17 (pt agrees with d/c and f/u in office) Attending physician: ELISA BURGESS Primary care physician: DOG SITTER Hospitalization Condition: Good Hospital course: treatment for UTI Culture pending Will f/u Outpt. Disposition: DC-01 TO HOME OR SELFCARE - Discharge Diagnoses (1) UTI (urinary tract infection) Status: Acute Qualifiers: Urinary tract infection type: acute cystitis Comment: rx macrobid BID increase hydration Core Measure Documentation - Palliative Care Palliative Care/ Comfort Measures: Not Applicable - Core Measures Any of the following diagnoses?: none - VTE Discharge Requirements Deep Vein Thrombosis/Pulmonary Embolism Present on Admission: No Has pt received <5 days of overlap therapy or INR<2.0: No Anticoagulant overlap therapy prescribed at discharge: No Contraindication No Overlap Therapy order at DC: Not Indicated - Acute [facility] Discharge Requirements Aspirin at discharge: No Reason for no aspirin on DC: Medical contraindication PATRICE/ARB for LVSD if EF <40%: Not Applicable Reason for no PATRICE/ARB: Medical contraindication Beta tati at discharge: No Reason for no beta tati on DC: Medical contraindication Statin for LDL = or >100 mg/dl on DC: Not Applicable Reason for no statin on DC: Medical contraindication - Heart Failure Discharge Requirements PATRICE/ARB for LVSD if EF <40%: Not Applicable Beta tati at discharge: No Reason for no beta tati on DC: Medical contraindication - Stroke Discharge Requirements Statin for LDL = or >70 mg/dl on DC: Not Applicable Reason for no statin on DC: Not Indicated Anticoag for atrial fib/atrial flutter: Not Applicable Reason for no anticoag for AF/F on DC: Not Indicated Antithrombotic for ischemic stroke: No Reason for no antithrombotic on DC: Not Indicated Exam - Constitutional Vitals: Temp Pulse Resp BP Pulse Ox 98.7 F 77 16 132/68 99 11/20/17 04:00 11/20/17 04:00 11/20/17 04:00 11/20/17 04:00 11/19/17 22:45 Plan Activity: no restrictions Diet: regular Follow up with: PRIMARY CARE, [Primary Care Provider] - 3-5 Days DALLAS FELTON CNM [Advanced Practice Nurse] - 7 Days (Please call office [phone] and make a follow up appointment in 1 week. Take all medications as prescribed. Increase po hydration. Drink lots of water! Call with any concerns.) Prescriptions: Ibuprofen [Motrin 800 MG tab] 800 mg PO TID PRN #30 tablet PRN Reason: Pain Nitrofurantoin [place]/M-Cryst [Macrobid] 100 mg PO Q12HR #10 capsule Ondansetron [Zofran TAB] 8 mg PO Q8HR PRN #20 tablet PRN Reason: Nausea
[2017-11-20 08:46] VITALS: BP 122/86
[2017-11-20] MEDS ORDERED: PEPCID IV SCH (10:00)
[2017-11-20] MEDS ORDERED: SODIUM CHLORIDE FLUSH SYRINGE 10 ML IV SCH (10:00)
== END 2017-11-20 09:15 | disposition home or self-care (01) ==
LOC: ED 12:58 → OB 21:03
PROVIDERS: ADMIT Obstetrics & Gynecology; ATTEND Obstetrics & Gynecology
DX: N39.0 Urinary tract infection, site not specified (principal); R11.2 Nausea with vomiting, unspecified; N93.9 Abnormal uterine and vaginal bleeding, unspecified; E11.9 Type 2 diabetes mellitus without complications
CPT/HCPCS: 36415; 76830; 76856; 80048; 81001; 84702; 85025; 96361; 96365; 96375; 96376; 99285; G0378; J0290; J1580; J2405; J7030; J2543